=== PATIENT | female | born 1970 | race Caucasian/White ===

== ENCOUNTER 2020-12-15 13:34 | Emergency (ER) | payer OTHER ==
[~2020-12-15] VITALS: Ht 162.6 cm; Wt 100.0 kg
[2020-12-15 16:12] VITALS: BP 123/74
== END 2020-12-15 16:36 | disposition home or self-care (01) ==
LOC: EMS 13:37
DX: L03.313 Cellulitis of chest wall (principal)
CPT/HCPCS: 99283; Z7502